=== PATIENT | female | born 1945 | race Caucasian/White ===

== ENCOUNTER → 2023-07-16 10:10 | Outpatient (REF) | payer MEDICARE, OTHER, SELFPAY | LOC: HWWDC 10:10 | PROVIDERS: ATTENDING PHYSICIAN Internal Medicine | DX: Z12.31 Encounter for screening mammogram for malignant neoplasm of breast (principal) | CPT/HCPCS: 77063; 77067 ==

== ENCOUNTER → 2024-07-18 09:23 | Outpatient (REF) | payer MEDICARE, OTHER, SELFPAY | LOC: HWWDC 09:23 | PROVIDERS: ATTENDING PHYSICIAN Internal Medicine | DX: Z12.31 Encounter for screening mammogram for malignant neoplasm of breast (principal) | CPT/HCPCS: 77063; 77067 ==

== ENCOUNTER 2025-03-13 15:24 | Inpatient (IN) | payer MEDICARE, OTHER, SELFPAY ==
[2025-03-13] VITALS (23 sets, daily range): BP systolic 90–117; BP diastolic 56–84; BMI 22.5
[2025-03-13 09:08] LABS: Hematocrit 38.5 % (37.0-47.0); Hemoglobin 13.2 g/dL (12.0-16.0); Mean Corp Hgb Conc. 34.3 g/dL (33.0-37.0); Mean Corpuscular Volume 95.3 fL (81.0-99.0); Nucleated Red Blood Cells % 0 %; Platelet Count 290 10^3/uL (130-400); Red Cell Dist. Width 12.6 % (11.5-14.5)
[2025-03-13] MEDS: CARDIZEM 125 IV ×3 (09:13→20:36)
[2025-03-13] MEDS: CARDIZEM 10 MG IV (09:13)
[2025-03-13] MEDS: NSS 1000 IV (09:14)
[2025-03-13 09:24] LABS: COVID-19 Antigen Negative (Negative)
[2025-03-13 09:32] LABS: Troponin I 0.021 ng/ml
[2025-03-13 09:47] LABS: ALT (SGPT) 19 U/L (0-35); AST (SGOT) 29 U/L (14-36); Albumin 4.2 g/dl (3.5-5.0); Alkaline Phosphatase 32 U/L (38-126); Blood Urea Nitrogen 17 mg/dl (7-17); Calcium 9.7 mg/dl (8.4-10.2); Carbon Dioxide 29 mmol/L (22-30); Chloride 108 mmol/L (98-107); Estimated Creatinine Clearance 43 ml/min; Glucose 83 mg/dl (70-99); Magnesium 2.0 mg/dl (1.6-2.3); Potassium 3.6 mmol/L (3.5-5.1); Sodium 142 mmol/L (135-145); Total Protein 7.2 g/dl (6.3-8.2); eGFR > 60.00
[2025-03-13] MEDS: CARDIZEM 15 MG IV (11:26)
[2025-03-13] MEDS: NSS 500 IV (11:26)
--- NOTE | 2025-03-13 12:50 | ED.GENMED ---
History of Present Illness
General
Chief Complaint: Breathing Problem
Source: patient
Time Seen by Provider: 03/13/25 08:54
History of Present Illness
History of Present Illness:
Note:
CHIEF COMPLAINT(S)
Palpitations and dizziness.
HISTORY OF PRESENT ILLNESS
The patient is an 79-year-old female with a history of atrial fibrillation, presenting with palpitations, dizziness, and a feeling of being uncoordinated. Symptoms reportedly began after waking up in the chief accountant the previous night with severe
ear and head pain. She was initially treated with a decongestant spray after visiting an urgent care center for presumed sinus pain. She noticed a decline in her condition, suspecting atrial fibrillation last night. The patient described feeling
'strangely dizzy and uncoordinated,' with difficulty completing tasks. She did not perceive her heart rate as rapid but experienced shortness of breath earlier in the day when challenging her usual physical activities, such as climbing stairs, which
does not typically cause dyspnea. She had an episode of feeling weak and fearing syncope. The patient has a prior diagnosis of atrial fibrillation but has not been hospitalized or previously managed with anticoagulants. Metoprolol is part of her
daily medications, and she took her usual morning dose. She recalled visiting a ceramic tile mechanic a few months ago and has an upcoming appointment with her primary care physician in two weeks.
PAST MEDICAL AND SURGICAL HISTORY
The patient has been diagnosed with atrial fibrillation via a monitor.
CHRONIC MEDICAL CONDITIONS SIGNIFICANTLY AFFECTING CARE
Atrial fibrillation.
SOCIAL HISTORY
The patient engages in regular physical activity within her community, including ascending and descending stairs.
MEDICATIONS
Metoprolol taken daily in the morning.
ALLERGIES
The patient reported allergies to unspecified medications.
PHYSICAL EXAM
General: Alert, no acute distress.
Cardiovascular: Regular and tachycardic with heart rate of 143 bpm on telemetry monitoring during exam. No murmurs appreciated
Respiratory: Lungs clear with auscultation.
Neurological: No focal neurological deficits observed. Cranial nerves intact. Extract muscles intact.
Skin normal
Extremities warm and well-perfused no edema
PROBLEM LIST
- Acute: Atrial fibrillation with rapid ventricular response, dizziness, and shortness of breath
PLAN
Hydration with intravenous fluids.
Administer Cardizem (diltiazem) to control heart rate.
Monitor for conversion to sinus rhythm.
Review of prior records to assess previous cardiac evaluations and management plans.
DIFFERENTIAL DIAGNOSIS
The Differential Diagnosis includes, in no particular order and is not limited to:
- Atrial fibrillation with rapid ventricular response
- Sinus arrhythmia
- Heart failure exacerbation
- Sinusitis causing autonomic response
- Transient ischemic attack
- Anemia
- Vestibular dysfunction
- Medication side effects
- Hypertension-related symptoms
- Electrolyte imbalance
EKG
My independent EKG interpretation is:
- Heart rate: 143 bpm
- Bruno: Normal
- Findings: Non-specific ST-T changes rate-related
CARE-UPDATE
03/13/25 - 12:50
The patients heart rate initially improved but remains in atrial flutter, as suspected after EKG review. Cardizem drip rates were increased due to climbing heart rates. Cardiology consultation planned for potential admission and T.E. Cardioversion
since the patients blood pressure is tenuous and not suitable for high-dose blockade. Potential link identified between recent rapid atrial flutter and AFRIN use for upper respiratory symptoms. The patient is currently not on anticoagulation.
Laboratory findings include normal CBC and CMP, negative troponin, elevated BNP at 6,240 without clinical heart failure signs, and normal chest X-ray. COVID test returned negative. Admission is anticipated for further management.
Disposition:
SUMMARY OF ENCOUNTER
The patient, an 79-year-old female with a history of atrial fibrillation, presented to the emergency department with palpitations and dizziness. The initial management involved hydration with intravenous fluids and administration of diltiazem
(Cardizem) to control heart rate. Symptoms persisted as atrial flutter with a rapid ventricular response. IV diltiazem drip rates were increased due to climbing heart rate and the potential need for T.E. Cardioversion was considered due to tenuous
blood pressure. Cardiology consultation was planned to address the rapid atrial flutter, likely exacerbated by afrin use for sinusitis symptoms. Patient was not on anticoagulation, and the admission was anticipated for further management.
DISPOSITION
Admit.
ASSESSMENT
Atrial flutter with rapid ventricular response, symptomatic with dizziness and tenuous blood pressure.
EMERGENCY TREATMENTS ADMINISTERED
Diltiazem (Cardizem), IV fluids.
MANAGEMENT OF THE PATIENTS CARE WAS DISCUSSED WITH
Cardiology team for admission and further management.
INDEPENDENT REVIEW OF LABS AND INTERPRETATION OF TESTS
- My independent review of CBC indicates normal findings.
- My independent review of CMP indicates normal findings.
- My independent review of troponin indicates negative findings.
- My independent review of BNP shows elevated levels at 6,240, but without heart failure signs.
MEDICATION RECONCILIATION
Administered diltiazem for rate control and intravenous fluids for hydration.
MEDICAL DECISION MAKING
- Number and Complexity of Problems Addressed: Chronic conditions affecting care include atrial fibrillation.
- Differential Diagnosis:
- Atrial fibrillation with rapid ventricular response
- Sinus arrhythmia
- Heart failure exacerbation
- Sinusitis causing autonomic response
- Transient ischemic attack
- Anemia
- Vestibular dysfunction
- Medication side effects
- Hypertension-related symptoms
- Electrolyte imbalance
- Data:
- Category 1
- Review of labs: CBC, CMP, troponin, BNP
- Independent EKG interpretation showing atrial flutter.
- Category 3
- Discussion of management with the cardiology team due to persistent atrial flutter and the need for admission.
- Risk: The decision to admit was based on persistent symptoms, rapid ventricular rate, and elevated BNP coupled with tenuous blood pressure, necessitating inpatient management.
DIAGNOSIS
- Atrial flutter with rapid ventricular response (ICD-10: I48.3)
Past History
Past History
ED Past Medical History: Other (blepharospasm, ocular dystonia)
Social History
Tobacco: Non-smoker
Alcohol: None
Personal:
Living: with family
Phy Exam
Physical Exam
Physical Exam:
.
Scores
Heart Failure Risk
Heart Failure Risk Score: Not Applicable
Course
Orders/Labs/Results
Orders:
Orders
03/13/25 08:51
Electrocardiogram (*1) Urgent
Reason for Study: Chest Pain
03/13/25 08:52
EKG- Treatment ONCE
03/13/25 08:54
COVID-19 Antigen Urgent
Source: Nasal Swab
Complete Blood Count/With Diff Urgent
Comprehensive Metabolic Panel Urgent
Magnesium Urgent
NT-proBNP Urgent
Comment: ADD ON
Troponin I Urgent
Influenza A+B Rapid Molecular Urgent
[place] Source: Nasal Swab
Specimen Description:
03/13/25 08:58
Add On- LAB Urgent
Tests Added?: Pro-BNP
03/13/25 09:04
0.9% Sodium Chloride 1000 ml [Nss] 1,000 ml IV BOLUS
Diltiazem 125 mg/125 ml Nss [Cardizem] 125 mg in 125 ml IV NOW
Initial dose in mg/hr, then titrate:: 5
Titrate to keep:: Heart rate 80-100 bpm
Titrate by mg/hr:: 5 mg/hr
Frequency of titrations (minutes):: 15
Maximum dose in mg/hr:: 15
Diltiazem HCl [Cardizem] 10 mg IV NOW STA
03/13/25 09:06
CXR2 [CR Chest - 2 Views ] Urgent
Comment:
Reason For Exam: SOB on exertion
03/13/25 10:47
Diltiazem HCl [Cardizem] 15 mg IV NOW STA
03/13/25 10:48
0.9% Sodium Chloride 500 ml [Nss] 500 ml IV BOLUS
03/13/25 11:42
EKG [Electrocardiogram (*1)] Urgent
Reason for Study: Other
Other Reason for Exam: on cardizem
03/13/25 11:43
EKG- Treatment ONCE
03/13/25 13:30
Diltiazem 125 mg/125 ml Nss [Cardizem] 125 mg in 125 ml IV PER PROTOCOL
Continuous dose without titration in mg/hr:: 10
Additional Titration Instructions:: Do not titrate. Rate change by provider order only.
Abnormal Lab Results
03/13/25
08:54
RBC 4.04 L 10^6/uL
(4.20-5.40)
MCH 32.7 H pg
(27.0-31.0)
MPV 10.5 H fL
(7.4-10.4)
Abs Immat Gran (auto) 0.3 H 10^3/uL
(0-0.05)
Absolute Neuts (auto) 6.8 H 10^3/uL
(1.4-6.5)
Absolute Monos (auto) 2.1 H 10^3/uL
(0.1-0.6)
Immature Gran % 3.1 H %
(0-0.5)
Lymphocytes % 13.7 L %
(20.5-51.1)
Monocytes % 19.7 H %
(1.7-9.3)
Chloride 108 H mmol/L
(98-107)
Alkaline Phosphatase 32 L U/L
(38-126)
03/13/25 08:54
03/13/25 08:54
Vital Signs
Initial and Last Documented VS:
Initial Vital Signs
Temp Pulse Resp BP Pulse Ox
97.2 F 142 22 94/80 99
03/13/25 08:49 03/13/25 08:49 03/13/25 08:49 03/13/25 08:49 03/13/25 08:49
Last Documented Vital Signs
Temp Pulse Resp BP Pulse Ox
97.2 F 93 16 110/79 99
03/13/25 08:49 03/13/25 12:45 03/13/25 12:45 03/13/25 12:38 03/13/25 12:51
*Pulse Oximetry
SaO2: 99
Oxygen Mode of Delivery: Room air
Patient hypoxic: no
*Critical Care Note
Total Time (30-74mins, 75-104mins- exclusive of procedures): 30 minutes
ED Attending Note
-
Portions of this chart may have been created with voice recognition software.� Occasional wrong word or��sound alike� substitutions may have occurred due to the inherent limitations of voice recognition software.
Discharge Plan
Departure
Patient Disposition: Admit
Date of Disposition: 03/13/25
Time of Disposition: 13:10
Admit to: Telemetry
Presentation/result/management discussed w/ accepting MD/DO: Hospitalist
Discharge Problem:
Atrial flutter with rapid ventricular response
Prescriptions:
No Action
nortriptyline 10 mg Capsule
20 mg PO HS
sertraline 25 mg Tablet
12.5 mg PO DAILY
hydrochlorothiazide 25 mg Tablet
25 mg PO DAILY
acetaminophen [Tylenol] 325 mg Tablet
650 mg PO Q6HPRN PRN (Reason: MILD PAIN)
clonazepam 2 mg Tablet
2 mg PO HS
Systane (PF) 0.4-0.3 % Dropperette
1 drp BOTH EYES QIDPRN PRN (Reason: DRYNESS)
Repatha SureClick 140 mg/mL Pen Injector
140 mg SC Q2W
Cequa 0.09 % Dropperette
1 drp BOTH EYES Q12H
Nexletol 180 mg Tablet
180 mg PO DAILY
aspirin 81 MG tablet,chewable
81 mg PO DAILY
metoprolol succinate 25 MG tablet extended release 24 hr
25 mg PO DAILY
Referrals:
UNKNOWN - PT DOES,NOT KNOW [Family Provider]
Interventions
Interventions:
*Risk Screen - Suicide Last Done: 03/13/25 08:49
*General Assessment Last Done: 03/13/25 08:49
*Neglect/Abuse Screening Last Done: 03/13/25 08:49
*ED COVID-19 Vaccine History Last Done: 03/13/25 08:49
*ED Influenza Vaccine History Last Done: 03/13/25 08:49
[facility] Fall Risk Assessment Tool Last Done: 03/13/25 08:49
ED- Cardiac Assessment Last Done: 03/13/25 08:49
ED- Pulmonary Assessment Last Done: 03/13/25 08:49
Discharge Date and Time
Print Language: MOLDOVAN
--- NOTE | 2025-03-13 14:11 | HPS.HSE ---
Addendum entered and electronically signed by Bobby Young MD 03/13/25 16:08:
I reviewed and agree with the note by GUILHERME and it accurately reflects our care.
I saw and evaluated the patient, and I provided the substantive portion of the medical decision making. My assessment and plan is below:
79-year-old female with paroxysmal atrial flutter, nonobstructive coronary artery disease, and hypertension who presents with shortness of breath. Patient reports that last night she started feeling 'off'. She noticed that when she walked down the
hallway she had imbalance. This morning she woke up and felt extremely short of breath with minimal exertion. In the ER she was found to be in atrial flutter with heart rates up to 130s�140s. She is asymptomatic at rest. She follows with .
Emili Barrios and was previously diagnosed with atrial flutter but is not on anticoagulation (she is not sure why but denies a history of bleeding, blood transfusion, or hemorrhagic CVA).
Physical exam: Tachycardic, regular rhythm, no murmurs, no lower extremity edema, clear lungs
Labs notable for troponin 0.021, creatinine 0.9
ECG: Atrial flutter with 2: 1 AV conduction, HR 143 bpm
Atrial flutter: We will plan for LANCE/DCCV tomorrow. Continue diltiazem for rate control. She understands that she will need to be on uninterrupted anticoagulation for at least 4 weeks following this. Case management to andrea Quiroga.
Original Note:
Family Physician
-
Family Physician: Chelsea Werner DO
Bilingual Teacher Aide: Emili Barrios MD
Chief Complaint
-
Shortness of breath
History of Present Illness
Miriam Chandler is an 79-year-old female (known to Dr. Barrios, her primary fire investigator), with paroxysmal atrial fibrillation, nonobstructive CAD, hypercholesterolemia with statin intolerance, hypertension, and hyperparathyroidism status post
parathyroidectomy who presented to the emergency department the chief complaint of shortness of breath. Over the [facility], [facility] She complained of pain in her right ear and an associated headache along with nasal congestion.
She was told to use Afrin nasal spray. The following day she had palpitations with associated dizziness and uncoordination. When she tried to perform physical activity she became short of breath. She then became weak and presented to the
emergency department for evaluation. She was found to have atrial flutter 2:1 conduction with elevated rates. She is not having any chest pain. She is not currently on a blood thinner. She has never had any abnormal bleeding.
Medical History
Past Medical History
Past Medical History: Reports Arrhythmia (Paroxysmal atrial fibrillation), CAD, HTN, Hypercholesterolemia and Other (Hyperparathyroidism status post parathyroidectomy)
Past Surgical History: Reports Gynocological, Orthopedic and Tonsilectomy
Social History
Tobacco: Non-smoker
Employment: Retired
Family History
Family History: Not pertinent
Allergies / Home Medications
Allergies reflects when Allergies were last updated in [employer].
Home Medications with original date entered in [employer]
Allergy/Medication List:
Allergies:
Statins cause muscle aches
Bactrim causes itching
Home medication list:
Acetaminophen 650 mg p.o. every 6 hours as needed
Aspirin 81 mg p.o. daily
Bempedoic acid 180 mg p.o. daily
Clonazepam 2 mg p.o. at bedtime
Cyclosporine 1 drop both eyes every 12 hours
Repatha 140 mg subcu q. 14 days
HCTZ 25 mg daily
Metoprolol succinate 25 mg daily
Nortriptyline 20 mg p.o. at bedtime
Sertraline 12.5 mg daily
Review of Systems
-
History Source: Patient
A 12 point ROS was completed and negative except as noted: Yes
Constitutional: Reports Fatigue
EENT: Reports No Symptoms
Respiratory: Reports See HPI
Cardiac: Reports See HPI
Abdomen/GI: Reports No Symptoms
: Reports No Symptoms
Musculoskeletal: Reports No Symptoms
Skin: Reports No Symptoms
Neurological: Reports No Symptoms
Endocrine: Reports No Symptoms
Hematologic/Lymphatic: Reports No Symptoms
Psych: Reports No Symptoms
Physical Exam
Vital Signs
Vital Signs
Temp Pulse Resp BP Pulse Ox
97.2 F 93 16 110/79 99
03/13/25 08:49 03/13/25 12:45 03/13/25 12:45 03/13/25 12:38 03/13/25 12:51
Physical Exam
General: Well Developed, Well Nourished, No Apparent Distress and Comfortable
HEENT: NormoCephalic, Anicteric and Moist mucous membranes
Respiratory: Clear and Non Labored Respirations
Cardiac: S1/S2, Irregular Rhythm and Tachycardia; No Peripheral Edema
Breast: Deferred by me
GI: Soft, Non Tender, Non Distended and Normal Bowel Sounds
Rectal: Deferred by Provider
Genito-urinary: No costovertebral tender
Musculoskeletal: No Clubbing, No Cyanosis and No Edema
Skin: Warm and Dry
Neuro: AO x 3
Hematologic/Lymphatic: No Lymphadenopathy
Psych: Calm
Laboratory Results
-
03/13/25 08:54
03/13/25 08:54
Laboratory Results
Total Bilirubin 0.5 mg/dl (0.2-1.3) 03/13/25 08:54
AST 29 U/L (14-36) 03/13/25 08:54
ALT 19 U/L (0-35) 03/13/25 08:54
Alkaline Phosphatase 32 U/L (38-126) L 03/13/25 08:54
Troponin I 0.021 ng/ml 03/13/25 08:54
Data Reviewed
-
Diagnostic Radiology: Report Reviewed by me
Medical Tests (Nuc Med, Echo, EKG etc): Report Reviewed by me
Lab Data: Labs Reviewed by me
Old Records: Requested
Impression/Plan
-
I/P: 79F with paroxysmal atrial fibrillation, nonobstructive CAD, hypercholesterolemia with statin intolerance, hypertension, and hyperparathyroidism status post parathyroidectomy who presented to the emergency department the chief complaint of
shortness of breath.
Outpatient fire investigator: Dr. Barrios
Atrial flutter, type unknown
Paroxysmal atrial fibrillation
- Continue rate control with diltiazem drip
- Increase metoprolol succinate after sinus rhythm is restored
- Oral Anticoagulation: Apixaban 2.5 mg twice daily (weight <60 kg, age 79), stop ASA
- [id number]: score at least 5 (HTN, age 75 or more, Vascular disease, female gender)
- TSh pending
- LANCE guided cardioversion tomorrow, n.p.o. after midnight
Coronary artery disease, nonobstructive
- Stable without chest pain
- Stop ASA, starting apixaban as above
Hypertension, chronic
- BP stable
Hypercholesterolemia with statin intolerance
- Continue Bempedoic acid and Repatha
Hyperparathyroidism status post thyroidectomy
SUBJECTIVE:
As above.
--- NOTE | 2025-03-13 14:39 | EDCM ---
Chart reviewed and attempted to speak with patient at ED bedside
Pt is NOT able to talk at this time
Per chart she lives in [facility]
Will be admitted to IVU
[2025-03-13] MEDS: ELIQUIS 2.5 MG PO ×2 (15:52→20:36)
--- NOTE | 2025-03-13 17:56 | PTCARENOTE ---
Patient received from ED, ambulated from stretcher to the bed, standby assist w/o assistive devices. Diltiazem gtt initially infusing as ordered at 10mg/hr as do not titrate, patient's HR consistently in the 130s. Notified CBC [employer] Tito, diltiazem
gtt order updated, titrated to 15mg/hr per order. Atrial flutter on telemetry. Oxygen saturation 97-98% on RA. The patient is AOx3, recent fall (yesterday), bed and chair alarm placed, discussed high fall risk precautions with patient. Denies pain.
Denies feeling lightheaded or dizzy at this time. Denies palpitations. Afib packet given. The patient also brought her own medications from home in a pill box and clear plastic bag, both items were walked down to pharmacy. Patient oriented to room
and unit. Call lugo within reach. Bed in lowest positions, wheels locked. Discussed NPO status at midnight in anticipation of LANCE/CV tomorrow. Care ongoing.
[2025-03-13] MEDS: PAMELOR 20 MG PO (21:58)
[2025-03-14] VITALS (20 sets, daily range): BP systolic 90–117; BP diastolic 60–83; BMI 23.6
--- NOTE | 2025-03-14 06:08 | PTCARENOTE ---
While sleeping patient HR 90's SBP to 90. Cardizem down to 5mg/hr. After ambulating to bathroom HR increased. Cardizem titrated slowly back to 15mg/hr with HR to 140's. Patient resting in bed watching TV. NPO since midnight for LANCE with CV.
[2025-03-14] MEDS: ELIQUIS 2.5 MG PO (07:47)
[2025-03-14] MEDS: ZOLOFT 12.5 MG PO (07:47)
[2025-03-14] MEDS: CARDIZEM 125 IV (07:49)
--- NOTE | 2025-03-14 10:25 | W.PN.CD ---
Today's Communication / Plan
-
LANCE/DCCV today. Then potentially home.
Case management to andrea Quiroga.
Impression / Plan
-
79F with paroxysmal atrial fibrillation, nonobstructive CAD, hypercholesterolemia with statin intolerance, hypertension, and hyperparathyroidism status post parathyroidectomy who presented to the emergency department the chief complaint of shortness
of breath, found to have atrial flutter with RVR.
Outpatient strawhat inspector and packer: Dr. Barrios
Atrial flutter, type unknown
Paroxysmal atrial fibrillation
- Continue rate control with diltiazem drip.
- Increase metoprolol succinate after sinus rhythm is restored
- Oral Anticoagulation: Apixaban 2.5 mg twice daily (weight <60 kg, age 79), stop ASA
- [id number]: score at least 5 (HTN, age 75 or more, Vascular disease, female gender)
- LANCE/DCCV today
Coronary artery disease, nonobstructive
- Stable without chest pain
- Stop ASA, starting apixaban as above
Hypertension, chronic
- BP stable
Hypercholesterolemia with statin intolerance
- Continue Bempedoic acid and Repatha
Hyperparathyroidism status post thyroidectomy
SUBJECTIVE: Patient got up to use the restroom this morning and felt unsteady and just generally off. +palpitations
Telemetry: Atrial flutter with RVR
Physical Exam
Vital Signs/Labs
Vital Signs
Temp Pulse Resp BP Pulse Ox
98.5 F 117 20 99/60 98
03/14/25 07:44 03/14/25 09:53 03/14/25 07:44 03/14/25 10:14 03/14/25 08:00
03/13/25 03/14/25 03/15/25
06:59 06:59 06:59
Actual Weight 131 lb 137 lb 5.568 oz
03/13/25 08:54
03/13/25 08:54
Magnesium 2.0 mg/dl (1.6-2.3) 03/13/25 08:54
03/13/25
08:54
[id number] Pept 6240
LAB Results
03/13/25
08:54
Troponin I 0.021
Physical Exam
Constitutional: No acute distress and Comfortable
Cardiovascular: Pedal edema is absent, Rhythm/rate is irregular, S1S2 is normal and Murmur/rub/gallop absent
Respiratory: Respiratory effort normal and Lungs clear to auscul.
Neuro/Psych: AO x 3
Data Reviewed
-
Date of Service: March 14, 2025
Medical Decision Making: Reviewed Test Results, Test Interpretation and Review of Case with other Provider
EKG: Tracing Personally Visualized and interpreted
Echo: Report Reviewed by me
Labs: Labs Reviewed by me
--- NOTE | 2025-03-14 10:39 | PTCARENOTE ---
Patient received at change of shift resting in the bed. Diltiazem gtt infusing at 15mg/hr. A-flutter on telemetry. HR fluctuates between 110s-140s. AM metoprolol held per cardiology due to SBPs in the 90s. SaO2 98% on RA. The patient reports feeling
her heart racing. Reports feeling dizzy and lightheaded at times. Denies pain. Plan of care discussed including NPO status regarding LANCE/CV planned for today. Bed and chair alarm in place as the patient is high fall risk. Call lugo within reach. Bed
in lowest position, wheels locked. Care ongoing.
--- NOTE | 2025-03-14 12:57 | CM ---
priced lyndsey with pts pharm ([facility]) her copay is zero dollars, she has met her OOP for the year. her pharmacist also suggested she can do the first refill at end of march in order to get month #2 for zero dollars. i gave
pt a 30 day free coupon for april. pt is agreeable to this cost.
--- NOTE | 2025-03-14 13:02 | CM ---
spoke to pt in room, she is prev [facility], lives in [facility] at [facility]. she has a flight of steps she uses to take out her dog, but there is an elevator to use if necessary. she denies any dme's. plan is for dc to home when medically
stable.
--- NOTE | 2025-03-14 14:08 | PTCARENOTE ---
Patient to LANCE/CV at approximately 1130. Returned from LANCE/CV at approximately 1400. SR telemetry. Call lugo within reach. Bed and chair alarm armed. Patient denies pain. Care ongoing.
--- NOTE | 2025-03-14 15:28 | W.DS.TRANS ---
DC Summary - Mix Mill Tender
-
Discharge Instructions:
Sleep Apnea Risk Low
Discharge Diagnosis/Procedures Atrial flutter
Atrial fibrillation
Procedure: LANCE guided DCCV 03/14/2025
Diet Low Cholesterol
Activity As tolerated
Driving Restrictions No driving for 24 hours
Bathing Restrictions None
Instructions:
Stand-Alone Forms:
Changes to Home Medications: Yes
Discharge Medications:
DC Medications w/original date entered in [employer]
acetaminophen 325 mg tablet (Tylenol) 650 mg PO Q6HPRN PRN MILD PAIN 03/13/25
bempedoic acid 180 mg tablet (Nexletol) 180 mg PO DAILY High Cholesterol 03/13/25
clonazepam 2 mg tablet 2 mg PO HS Mental Health/Anxiety 03/13/25
cyclosporine 0.09 % eye drops in a dropperette (Cequa) 1 drp BOTH EYES Q12H Eye Condition 03/13/25
evolocumab 140 mg/mL subcutaneous pen injector (Repatha SureClick) 140 mg SC Q2W High Cholesterol 03/13/25
nortriptyline 10 mg capsule 20 mg PO HS Mental Health/Anxiety 03/13/25
peg 400-propylene glycol (PF) 0.4 %-0.3 % eye drops in a dropperette 1 drp BOTH EYES QIDPRN PRN DRYNESS 03/13/25
sertraline 25 mg tablet 12.5 mg PO DAILY Mental Health/Anxiety 03/13/25
apixaban 5 mg tablet (Eliquis) 5 mg PO BID #60 tabs 03/14/25
metoprolol succinate 25 mg tablet,extended release 24 hr 25 mg PO BID #60 tabs 03/14/25
Home Medication Changes
HCTZ stopped
Metoprolol succinate increased from daily to twice daily
Aspirin stopped and apixaban started
Pending Results: No
--- NOTE | 2025-03-14 16:13 | PTCARENOTE ---
Patient's home medications returned to her prior to discharge. oncology rn and PIV INT removed. Eliquis coupon given to patient by CM. D/C instructions reviewed. Patient taken to daughter's car via wheelchair with staff escort.
--- NOTE | 2025-03-14 18:36 | ITS.CL.CARDI ---
[employer] - Cardioversion
Cardioversion
Procedure Report:
Date of Procedure: 03/14/25
Procedure: Cardioversion
Indication: Symptomatic atrial flutter
Performing Physician: Natali Garcia DO [facility]
Transesophageal echocardiogram without left atrial appendage thrombus. For full details, please see official report
Anticoagulation: Eliquis
Technique: The patient was brought to the holding area. Signed informed consent was obtained. A time out was called and performed. The patient was anesthetized by the anesthesia service. Anticoagulation status was reviewed and appropriate. R2 pads
were placed anteriorly and posteriorly. Transesophageal echocardiogram performed without complication; no left atrial appendage thrombus. A 200 J synchronized biphasic shock restored normal sinus rhythm without significant bradycardia. There were
no complications.
Conclusion: Uncomplicated cardioversion from atrial flutter to sinus rhythm.
Recommendation: Routine post cardioversion care. Continue alf anticoagulation.
== END 2025-03-14 16:27 | disposition home or self-care (01) | DRG 310 ==
LOC: IVU 15:24
PROVIDERS: Internal Medicine Cardiovascular Disease; ADMITTING PHYSICIAN Student in an Organized Health Care Education/Training Program; EMERGENCY PHYSICIAN Emergency Medicine
PROC: B24BZZ4 Ultrasonography of Heart with Aorta, Transesophageal (ICD-10-PCS; 2025-03-14)
PROC: 5A2204Z Restoration of Cardiac Rhythm, Single (ICD-10-PCS; 2025-03-14)
DX: I48.92 Unspecified atrial flutter (principal); I48.0 Paroxysmal atrial fibrillation; I11.9 Hypertensive heart disease without heart failure; I25.10 Atherosclerotic heart disease of native coronary artery without angina pectoris; E89.0 Postprocedural hypothyroidism; E78.00 Pure hypercholesterolemia, unspecified; Z60.2 Problems related to living alone; Z79.82 Long term (current) use of aspirin; Z79.01 Long term (current) use of anticoagulants; Z11.52 Encounter for screening for COVID-19
CPT/HCPCS: 71046; 80053; 83735; 83880; 84443; 84484; 85025; 87502; 87811; 92960; 93005; 93312; 93320; 93325; 96361; 96374; 96376; 99291